=== PATIENT | male | born 1985 | race Caucasian/White ===

== ENCOUNTER 2017-03-04 11:59 | Emergency (ER) | payer OTHER ==
[~2017-03-04] VITALS: Ht 175.3 cm; Wt 112.0 kg
[~2017-03-04 11:59] MED LIST: ALBU1AER9 INH; SERT1TAB68 PO
[2017-03-04 12:09] VITALS: TEMP 36.6; Ht 175.3 cm; Wt 112.0 kg
[2017-03-04] MEDS ORDERED: METHYLPREDNISOLONE 125 MG VIAL IV STA (12:20)
[2017-03-04] MEDS ORDERED: DiphenhydrAMINE HCL 50 MG/ML VIAL IV STA (12:20)
[2017-03-04] MEDS ORDERED: RANITIDINE HCL 50 MG/100 ML D5W IV STA (12:20)
--- NOTE | 2017-03-04 12:23 | EMERGENCY ROOM VISIT NOTE ---
History Report prepared by Faye: Ran Hale Under the Supervision of: Dr. Anish Gregg M.D. First contact with patient: 12:13 Chief Complaint: ALLERGIC REACTION Stated Complaint: SWOLLEN FACE, WHEEZING, ALARCON, CHEST PAINS History of Present Illness The patient is a 31 year old male who presents to the Emergency Room with complaints of a constant allergic reaction starting prior to arrival. The patient states that he was bit by a bug on the back of the right leg, and afterwards he was having wheezing, rash, chest pain, abdominal pain, facial swelling, and a headache. He states that he is currently feeling better than he was initially. Source of History: patient Onset: prior to arrival Position: other (global) Quality: other (allergic reaction) Timing: constant Associated Symptoms: + headache, + chest pain, + abdominal pain, + rash Note: Associated symptoms: Wheezing, facial swelling Review of Systems See HPI for pertinent positives & negatives. A total of 10 systems reviewed and were otherwise negative. Past Medical & Surgical Medical Problems: (1) Anxiety (2) Asthma Family History Diabetes mellitus Hypertension Kidney disease Kidney stones Lung disease Social History Smoking Status: Never Smoker Marital Status: Housing Status: lives with family Occupation Status: employed Current/Historical Medications Scheduled Amoxicillin (Amoxil), 500 MG PO TID Epinephrine (Epipen), 0.3 MG IM UD Prednisone (Prednisone Tab), 0 PO DAILY Ranitidine Hcl (Zantac), 150 MG PO BID Sertraline Hcl (Zoloft), 150 MG PO DAILY Allergies Coded Allergies: No Known Allergies (Unverified , 03/04/17) Physical Exam Vital Signs Date Time Temp Pulse Resp B/P (MAP) Pulse Ox O2 Delivery O2 Flow Rate FiO2 03/04/17 13:30 74 18 127/63 96 Room Air 03/04/17 12:28 77 03/04/17 12:20 98 Room Air 03/04/17 12:09 36.6 87 20 125/84 95 Room Air Physical Exam GENERAL: Patient is a healthy-appearing well-nourished male HEAD: Normocephalic atraumatic EYES: Ocular movements intact pupils equal and react to light OROPHARYNX mucous membranes are moist no exudates present no erythema or edema present NECK: No stridor. Supple no nuchal rigidity. CHEST: Good equal expansion LUNGS: Clear and equal to auscultation CARDIAC: Normal S1 and S2 ABDOMEN: Soft nontender no guarding BACK: No CVA tenderness EXTREMITIES: No pain upon palpation normal muscle strength in all groups no clubbing cyanosis or edema NEURO: Patient is following commands and answering questions appropriately. Alert and oriented x3 Cranial Nerves 2-12 grossly intact Medical Decision & Procedures Medications Administered Medications (Trade) Dose Ordered Sig/Zaida Route Start Time Stop Time Status Last Admin Dose Admin Diphenhydramine HCl (Benadryl Inj) 50 mg NOW STAT IV 03/04/17 12:20 03/04/17 12:22 DC 03/04/17 12:29 50 MG Methylprednisolone Sodium Succinate (Solu-Medrol IV) 125 mg NOW STAT IV 03/04/17 12:20 03/04/17 12:22 DC 03/04/17 12:29 125 MG Ranitidine HCl (zANTac IV) 50 mg NOW STAT IV 03/04/17 12:20 03/04/17 12:22 DC 03/04/17 12:28 50 MG Sodium Chloride 1,000 ml @ 999 mls/hr Q1H1M STAT IV 03/04/17 12:26 03/04/17 13:26 DC 03/04/17 12:26 999 MLS/HR ED Course 1213: Past medical records reviewed. The patient was evaluated in room B5. A complete history and physical examination was performed. 1220: Zantac 50mg IV, Solu-Medrol 125mg IV, Benadryl 50mg IV 1226: Sodium Chloride 1000 ml @ 999 mls/hr 1320: Upon reexamination the patient is doing well. I discussed results and treatment plan with the patient. He verbalizes agreement and understanding. The patient is ready for discharge. Medical Decision Differential diagnosis: Etiologies such as allergic reaction, anaphylaxis, urticaria, Lozano-Colt syndrome, toxic epidermal necrolysis, erythema multiforme, cellulitis, as well as others were entertained. There is a 31-year-old male who presents emergency Department with allergic like reaction. Upon arrival to emergency department the patient has no complaints. He has no stridor on examination he has no wheezing. Because the patient did have wheezing however an IV was established patient was given normal saline bolus, Zantac, Solu-Medrol, Benadryl. Repeat examination revealed much improved the patient's symptoms. The patient was written for EpiPen and I cautioned him he may have a full blown allergic reaction next time he gets stung. Patient was in agreement with the treatment plan. Medication Reconcilliation Current Medication List: was personally reviewed by me Blood Pressure Screening Patient's blood pressure: Normal blood pressure Impression Primary Impression: Allergic reaction Scribe Attestation The scribe's documentation has been prepared under my direction and personally reviewed by me in its entirety. I confirm that the note above accurately reflects all work, treatment, procedures, and medical decision making performed by me. Departure Information Dispostion Home / Self-Care Prescriptions Ranitidine Hcl (ZANTAC) 150 Mg Tab 150 MG PO BID for 7 Days, #14 TAB Prov: Anish Gregg MD 03/04/17 Prednisone (Prednisone Tab) 20 Mg Tab 0 PO DAILY, #7 TAB 2 TABS DAILY FOR 2 DAYS, THEN 1 TAB DAILY FOR 2 DAYS, THEN 1/2 TAB DAILY FOR 2 DAYS. Prov: Anish Gregg MD 03/04/17 Epinephrine (EPIPEN) 0.3 Mg/0.3 Ml Inj 0.3 MG IM UD, #2 BOX Prov: Anish Gregg MD 03/04/17 Referrals Harriet Soria (PCP) Forms HOME CARE DOCUMENTATION FORM, IMPORTANT VISIT INFORMATION, School Instructions, Work Instructions Patient Instructions ED Allergic Reaction General Other, My [facility] Additional Instructions Take 50 mg Benadryl every 6 hours as needed You have been examined and treated today on an emergency basis only. This is not a substitute for, or an effort to provide, complete comprehensive medical care. It is impossible to recognize and treat all injuries or illnesses in a single emergency department visit. It is therefore important that you follow up closely with Dr Soira. Call as soon as possible for an appointment. Thank you for your time and consideration. I look forward to speaking with you again soon. Please don't hesitate to call us if you have any questions. Problem Qualifiers Primary Impression: Allergic reaction Encounter type: initial encounter Qualified Codes: T78.40XA - Allergy, unspecified, initial encounter
[2017-03-04] MEDS ORDERED: SODIUM CHLORIDE 0.9% 1000ML 1,000 ML IV STA (12:26)
[2017-03-04] MEDS ORDERED: AMOX500C3 PO (13:02)
[2017-03-04] MEDS ORDERED: EPP3/2 IM (13:21)
[2017-03-04] MEDS ORDERED: PRED20TA2 PO (13:21)
[2017-03-04] MEDS ORDERED: RANI150T3 PO (13:21)
[2017-03-04 13:30] VITALS: BP 127/63; PULSE 74; O2SAT 96
== END 2017-03-04 13:32 | disposition home or self-care (01) ==
LOC: C.EDB 12:01
DX: T78.40XA Allergy, unspecified, initial encounter (principal); S80.869A Insect bite (nonvenomous), unspecified lower leg, initial encounter; W57.XXXA Bitten or stung by nonvenomous insect and other nonvenomous arthropods, initial encounter; F41.9 Anxiety disorder, unspecified; J45.909 Unspecified asthma, uncomplicated; Z83.3 Family history of diabetes mellitus; Z82.49 Family history of ischemic heart disease and other diseases of the circulatory system; Z84.1 Family history of disorders of kidney and ureter